=== PATIENT | female | born 1995 | race Caucasian/White ===

== ENCOUNTER 2017-03-01 02:18 | Inpatient (IN) | payer SELFPAY ==
[2017-03-01 02:51] LABS: Hematocrit 42 % (35-47); Hemoglobin 14.2 g/dl (12.0-16.0); Mean Corpuscular HGB Conc 34 g/dl (31-36); Mean Corpuscular Hemoglobin 30 pg (27-31); Mean Corpuscular Volume 87 fL (80-97); Mean Platelet Volume 8 um3 (7.4-10.4); Red Blood Count 4.81 10^6/ul (4.0-5.4); Red Cell Distribution Width 14 % (10.5-15); White Blood Count 9.2 10^3/ul (3.5-10.8)
[2017-03-01 03:09] LABS: ALT 9 U/L (7-52); AST 13 U/L (13-39); Albumin 4.4 g/dL (3.2-5.2); Alkaline Phosphatase 40 U/L (34-104); Anion Gap 10 mmol/L (2-11); BUN/Creatinine Ratio 9.9 (8-20); Blood Urea Nitrogen 7 mg/dL (6-24); CO2 Carbon Dioxide 25 mmol/L (22-32); Chloride 105 mmol/L (101-111); EGFR African American 136.4 (>60); Globulin 2.8 g/dL (2-4); Glucose 103 mg/dL (70-100); Potassium 3.4 mmol/L (3.5-5.0); Sodium 140 mmol/L (133-145); Total Protein 7.2 g/dL (6.4-8.9)
[2017-03-01 03:23] LABS: Acetaminophen 16 mcg/mL; Alcohol 182 mg/dL (<10); Salicylate < 2.50 mg/dL (<30)
[2017-03-01 03:32] LABS: TSH (Thyroid Stimulating Horm) 3.02 mcIU/mL (0.34-5.60)
--- NOTE | 2017-03-01 06:58 | ED ---
Leslie Clifford Rebecca, scribed for Jamison Malcolm MD on 03/01/17 at 0524 . Substance Abuse/Use - HPI Summary HPI Summary: Pt is a 21 y/o F BIBA accompanied by [facility] police as a 2209 that was changed to a 941. Per nurse's notes, there was a note received by police that cause her to be switched to a 941. Pt confirms taking Percocet and EtOH tonight , stating "a little bit but not a lot" when asked how much of either she had. When asked if she does Percocet often she states "no I was just getting high." Denies SIs and edema. When asked why she presents, the pt reports that she was just "doing nothing, then police showed up." Denies any other drug use tonight. NKDA. Limited Hx obtainable from pt due to EtOH and Percocet use. - History Of Current Complaint Chief Complaint: EDMentalHealth Stated Complaint: SUBSTANCE ABUSE Time Seen by Provider: 03/01/17 03:38 Hx Obtained From: Patient, Medical Records Ingestion History: Type/Name Of Drug - EtOH, Percocet Overdose Characteristics: Oral Timing Of Abuse: Binge Use Aggravating Factor(s): Nothing Alleviating Factor(s): Nothing Associated Signs And Symptoms: Other: - Denies SIs - Allergies/Home Medications Allergies/Adverse Reactions: Allergies Allergy/AdvReac Type Severity Reaction Status Date / Time No Known Allergies Allergy Verified 03/01/17 06:34 PMH/Surg Hx/FS Hx/Imm Hx Previously Healthy: No - Unknown - limited Hx obtained from pr Infectious Disease History: No Infectious Disease History: Denies: Traveled Outside the [place] in Last 30 Days - Family History Known Family History: Positive: Unknown - Limited Hx due to pt's EtOH and Percocet - Social History Occupation: Student Alcohol Use: Weekly Review of Systems Negative: Edema Positive: Other - S/p EtOH and Percocet use, NEGATIVE: SIs All Other Systems Reviewed And Are Negative: Yes Physical Exam - Summary Physical Exam Summary: The patient is well-nourished in no acute distress and in no acute pain. The skin is warm and dry and skin color reflects adequate perfusion. HEENT: The head is normocephalic and atraumatic. The pupils are equal and reactive. The conjunctivae are clear and without drainage. Nares are patent and without drainage. Mouth reveals moist mucous membranes and the throat is without erythema and exudate. The external ears are intact. The ear canals are patent and without drainage. The tympanic membranes are intact. Neck is supple with full range of motion and non-tender. Respiratory: Chest is non-tender. Lungs are clear to auscultation and breath sounds are symmetrical and equal. Cardiovascular: Hear is regular rate and rhythm. There is no murmur or rub auscultated. There is no peripheral edema and pulses are symmetrical and equal. Abdomen: The abdomen is soft and non-tender. There are normal bowel sounds heard in all four quadrants and there is no organomegaly palpated. Musculoskeletal: No cuts to the upper extremities. Extremities are non-tender with full range of motion. There is good capillary refill. There is no peripheral edema or calf tenderness elicited. Good pulses distally. Neurological: Patient is alert. Psychiatric: The patient has an appropriate affect and does not exhibit any anxiety or depression. Triage Information Reviewed: Yes Vital Signs On Initial Exam: Initial Vitals Temp Pulse Resp BP Pulse Ox 97.8 F 67 18 118/70 100 03/01/17 02:29 03/01/17 02:29 03/01/17 02:29 03/01/17 02:29 03/01/17 02:29 Vital Signs Reviewed: Yes Diagnostics - Vital Signs Vital Signs Temp Pulse Resp BP Pulse Ox 03/01/17 02:29 97.8 F 67 18 118/70 100 - Laboratory Lab Results: Lab Results 03/01/17 03/01/17 Range/Units 02:41 02:41 WBC 9.2 (3.5-10.8) 10^3/ul RBC 4.81 (4.0-5.4) 10^6/ul Hgb 14.2 (12.0-16.0) g/dl Hct 42 (35-47) % MCV 87 (80-97) fL MCH 30 (27-31) pg MCHC 34 (31-36) g/dl RDW 14 (10.5-15) % Plt Count 270 (150-450) 10^3/ul MPV 8 (7.4-10.4) um3 Neut % (Auto) 64.3 (38-83) % Lymph % (Auto) 28.5 (25-47) % Barbour % (Auto) 5.8 (1-9) % Eos % (Auto) 0.8 (0-6) % Baso % (Auto) 0.6 (0-2) % Absolute Neuts (auto) 5.9 (1.5-7.7) 10^3/ul Absolute Lymphs (auto) 2.6 (1.0-4.8) 10^3/ul Absolute Monos (auto) 0.5 (0-0.8) 10^3/ul Absolute Eos (auto) 0.1 (0-0.6) 10^3/ul Absolute Basos (auto) 0.1 (0-0.2) 10^3/ul Absolute Nucleated RBC 0.01 10^3/ul Nucleated RBC % 0.1 Sodium 140 (133-145) mmol/L Potassium 3.4 L (3.5-5.0) mmol/L Chloride 105 (101-111) mmol/L Carbon Dioxide 25 (22-32) mmol/L Anion Gap 10 (2-11) mmol/L BUN 7 (6-24) mg/dL Creatinine 0.71 (0.51-0.95) mg/dL Est GFR ( Amer) 136.4 (>60) Est GFR (Non-Af Amer) 106.0 (>60) BUN/Creatinine Ratio 9.9 (8-20) Glucose 103 H (70-100) mg/dL Calcium 9.0 (8.6-10.3) mg/dL Total Bilirubin 0.70 (0.2-1.0) mg/dL AST 13 (13-39) U/L ALT 9 (7-52) U/L Alkaline Phosphatase 40 (34-104) U/L Total Protein 7.2 (6.4-8.9) g/dL Albumin 4.4 (3.2-5.2) g/dL Globulin 2.8 (2-4) g/dL Albumin/Globulin Ratio 1.6 (1-3) TSH 3.02 (0.34-5.60) mcIU/mL Beta HCG, Quant < 0.60 mIU/mL Salicylates < 2.50 (<30) mg/dL Acetaminophen 16 mcg/mL Serum Alcohol 182 H (<10) mg/dL Result Diagrams: 03/01/17 02:41 03/01/17 02:41 Lab Statement: Any lab studies that have been ordered have been reviewed, and results considered in the medical decision making process. Course/Dx - Course Assessment/Plan: Pt is a 21 y/o F BIBA accompanied by [facility] police as a 2209 that was changed to a 941. Per nurse's notes, there was a note received by police that cause her to be switched to a 941. Pt confirms taking Percocet and EtOH tonight, stating "a little bit but not a lot" when asked how much of either she had. When asked if she does Percocet often she states "no I was just getting high." Denies SIs and edema. When asked why she presents, the pt reports that she was just "doing nothing, then police showed up." Denies any other drug use tonight. NKDA. Limited Hx obtainable from pt due to EtOH and Percocet use. Serum alcohol of 182. Pt will be signed out, pending disposition awaiting MHE. - Diagnoses Provider Diagnoses: Acute alcohol intoxication, Suicidal ideations, Depression Discharge - Discharge Plan Condition: Stable Disposition: OTHER Discharge Disposition Comment: Pt will be signed out, pending disposition, awaiting MHE Referrals: [facility] [Primary Care Provider] - The documentation as recorded by the Leslie maher Rebecca accurately reflects the service I personally performed and the decisions made by me, Jamison Malcolm MD.
[2017-03-01 07:02] LABS: Urine Bacteria Absent (Absent); Urine Bilirubin Negative (Negative); Urine Glucose Negative (Negative); Urine Nitrite Negative (Negative)
[2017-03-01 07:22] LABS: Benzodiazepine Urine Screen None Detected (None Detect)
[2017-03-01] MEDS ORDERED: Nicotine GUM* 2 MG PO PRN (13:47)
[2017-03-01] MEDS ORDERED: Nicotine Inhaler* 10 MG AMP INH PRN (13:47)
[2017-03-01] MEDS ORDERED: Acetaminophen TAB* 325 MG PO PRN (13:47)
[2017-03-01] MEDS ORDERED: Al Hydrox/Mg Hydrox/Simet LIQ* 30 ML UDC PO PRN (13:47)
[2017-03-01] MEDS ORDERED: hydrOXYzine HCL TAB* 50 MG PO PRN (13:48)
[2017-03-01] MEDS: Nicotine Patch Removal NOTE PATCH OFF SCH (22:11)
[2017-03-02] MEDS: Nicotine PATCH 21 MG/24 HR* PATCH TRANSDERM SCH (11:10)
--- NOTE | 2017-03-02 13:08 | CONSULT ---
Consult Consult: Ms. Lemos presented intoxicated after having written a note to her Mom that implied that she may commit suicide. She was medically cleared on a previous shift and had a MHE. They felt that she need to be admitted for her safety and I agreed. She was admitted in stable condition with a diagnosis of depression with SI.
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
[2017-03-02] MEDS: Nicotine Patch Removal NOTE PATCH OFF SCH (20:35)
[2017-03-03] MEDS: Nicotine PATCH 21 MG/24 HR* PATCH TRANSDERM SCH (13:21)
[2017-03-03] MEDS: Nicotine Patch Removal NOTE PATCH OFF SCH (19:40)
[2017-03-04] MEDS: Nicotine PATCH 21 MG/24 HR* PATCH TRANSDERM SCH (09:59)
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
[2017-03-04] MEDS: Nicotine Patch Removal NOTE PATCH OFF SCH (20:22)
[2017-03-05 08:03] VITALS: BP 122/74
[2017-03-05] MEDS: Nicotine PATCH 21 MG/24 HR* PATCH TRANSDERM SCH (10:35)
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
--- NOTE | 2017-03-06 11:03 | DS ---
CC: [facility]; [facility]; FLORI Brenner, [facility] DISCHARGE SUMMARY: DATE OF ADMISSION: 03/01/17 DATE OF DISCHARGE: 03/05/17 SUPERVISING PSYCHIATRIST: Jacky Vu MD. DISCHARGE DIAGNOSES: Guy I: Unspecified depressive disorder, alcohol use disorder, cannabis use disorder. Guy II: Deferred. Guy III: No active medical problem. Guy IV: Stressors related to interpersonal relationships, and academic pressors. Guy V: 68. CONDITION AT THE TIME OF DISCHARGE: Improved. The patient vehemently denies depressed mood and suicidal ideation. She reports she is eager to resume course work at [employer] [facility] [facility] [employer] and wants to pursue her studies in [employer]. She agreed to be picked up by her mom and stepfather to return to campus. We discussed the importance of keeping her family involved in regards to her academic, social and personal life. She is encouraged to speak honestly with her therapist to discuss personal stressors. I also discussed the risk of substance use and the effect on not only the adolescent brain, but also decision making and impulsivity. Instructions are given to the patient and a copy given to her mother. MENTAL STATUS EXAMINATION: Patient is thin-framed, healthy appearing and appears stated age. She is cooperative and pleasant, talkative. She has adequate ADLS and is well-groomed. She is A+Ox3, Eye contact is good. Speechs i soft and articulate. Mood is "excited" and affect is bright. Thought processes are logical and goal directed. Thought content is negative for thought disorders. Insight and judgement are good. Memory 3/3. Fund of knowledge is excellent. MEDICATIONS: None. The patient declines need for medications at this time. ACTIVITY: Ambulation as tolerated. Tobacco cessation assistance declined by patient. No pending labs or diagnostic studies at the time of discharge. DIET: Regular. FOLLOW-UP CARE: The patient is given appointments as agreed upon with her therapist, Ryan Whalen, at [facility]. She will also see therapist, Purvi Brown, for EMDR. She will meet with Nora Blackwell, the dude ranch manager at [facility] tomorrow morning at 10:30 a.m. Shortly thereafter, she will start orientation for a group through the [facility] program. HOSPITAL COURSE: A. Reason for admission: The patient was brought to the emergency department under 9.41 due to suicide gesture and disorganized intoxicated behavior. B. Psychiatric treatment rendered: The patient was admitted to Adult Behavioral Services unit under 9.39 status. Code status was full. She was placed on 15- minute checks for safety, encouraged to participate in therapeutic milieu, individual and psychoeducational groups. Collateral was obtained from [facility], her mother and stepfather and her therapist in regards to baseline. Throughout the hospitalization, Vanessa participated in programing, she was interactive with select staff and peers. There was some concern that she was minimizing her suicide attempt and stressors leading up to it. She denies need for antidepressant or antianxiety medications. She also minimized her alcohol, marijuana and prescription pain pill use. Patient education was done in regards to impact of substance use. This video game script writer collaborated with her mother and her stepfather obtaining collateral about the patient's current presentation and her mental health history. The patient had been admitted over the weekend and met with this video game script writer on Saturday morning. She expressed eagerness for discharge as soon as possible. She was encouraged to remain at least one more business day for full staff observation and to complete an MMPI for diagnostic clarification. See consultation report by Dr. Dylon Heath. The patient continued to deny suicidal ideation. She was safe on all checks. Observation was decreased to 30-minute checks and she was allowed staff pass, she was allowed computer privileges for academic and discharge purposes. She was pleasant and cooperative, increasingly receptive to staff suggestions. She agreed to follow up with recommendations for outpatient services at [facility] and through private therapist for EMDR. The patient's parents were notified of discharge plan and given copies of discharge paperwork. The patient was discharged by nursing staff to her mother and stepfather. Deputy Jailer was present to answer questions and concerns. Cynthia is an intelligent young woman who is a pleasure to meet. We certainly wish her well in her academic career at [employer] [facility] [facility] [employer]. She is encouraged to return to the emergency department should symptoms worsen. ANDRAE WREN, ANKITA [id number]/[facility] #: [id number] RADHA
== END 2017-03-05 12:20 | disposition home or self-care (01) | DRG 881 ==
LOC: ED 02:18 → BSU 13:47
PROVIDERS: ADMIT Psychiatry & Neurology Psychiatry; ATTEND Psychiatry & Neurology Psychiatry
DX: F32.9 Major depressive disorder, single episode, unspecified (principal); R45.851 Suicidal ideations; F10.10 Alcohol abuse, uncomplicated; F12.90 Cannabis use, unspecified, uncomplicated
CPT/HCPCS: 36415; 80053; 80307; 80320; 80329; 81003; 81015; 84443; 84702; 85025; 87086; A9270-GY; G0480

== ENCOUNTER 2017-04-05 19:05 | Inpatient (IN) | payer SELFPAY ==
[2017-04-05] MEDS ORDERED: LORazepam INJ* 2 MG/ML 1 ML VIAL IM ONE ×2 (20:09→21:27)
[2017-04-05] MEDS ORDERED: LORazepam INJ* 2 MG/ML 1 ML VIAL IV ONE (20:09)
[2017-04-05 20:48] LABS: Hematocrit 41 % (35-47); Hemoglobin 13.9 g/dl (12.0-16.0); Mean Corpuscular HGB Conc 34 g/dl (31-36); Mean Corpuscular Hemoglobin 30 pg (27-31); Mean Corpuscular Volume 88 fL (80-97); Mean Platelet Volume 8 um3 (7.4-10.4); Red Blood Count 4.69 10^6/ul (4.0-5.4); Red Cell Distribution Width 14 % (10.5-15); White Blood Count 16.6 10^3/ul (3.5-10.8)
[2017-04-05 21:04] LABS: ALT 11 U/L (7-52); AST 15 U/L (13-39); Albumin 4.4 g/dL (3.2-5.2); Alkaline Phosphatase 50 U/L (34-104); Anion Gap 10 mmol/L (2-11); BUN/Creatinine Ratio 17.4 (8-20); Blood Urea Nitrogen 12 mg/dL (6-24); CO2 Carbon Dioxide 24 mmol/L (22-32); Calcium 9.2 mg/dL (8.6-10.3); Chloride 105 mmol/L (101-111); EGFR Non-African American 109.6 (>60); Glucose 79 mg/dL (70-100); Potassium 3.4 mmol/L (3.5-5.0); Sodium 139 mmol/L (133-145); Total Protein 7.4 g/dL (6.4-8.9)
[2017-04-05 21:21] LABS: Acetaminophen < 15 mcg/mL; Alcohol 243 mg/dL (<10); Salicylate < 2.50 mg/dL (<30)
[2017-04-05 21:39] LABS: Urine Bacteria Absent (Absent); Urine Bilirubin Negative (Negative); Urine Glucose Negative (Negative); Urine Nitrite Negative (Negative)
[2017-04-05 22:01] LABS: Benzodiazepine Urine Screen None Detected (None Detect)
--- NOTE | 2017-04-05 22:36 | ED ---
Emerald Clifford Alfonso, scribed for Maicol Jack MD on 04/05/17 at 1927 . Psychiatric Complaint - HPI Summary HPI Summary: This patient is a 21 year old F [facility] with a chief complaint of SI since early today. She was referred to [facility] by her counselor. She got news today regarding a contact restriction against her. The patient rates the pain 0/10 in severity. Symptoms alleviated by nothing. Patient reports vomiting, and ETOH use. - History Of Current Complaint Hx Obtained From: Patient, Other: - Counselor Onset/Duration: Gradual Onset, Lasting Hours, Still Present Timing: Constant Severity Currently: Moderate Character: Stuporous Alleviating Factor(s): Nothing Has Suicidal: Reports: Thoughts - Allergies/Home Medications Allergies/Adverse Reactions: Allergies Allergy/AdvReac Type Severity Reaction Status Date / Time No Known Allergies Allergy Verified 03/01/17 16:50 PMH/Surg Hx/FS Hx/Imm Hx Sensory History: Reports: Hx Contacts or Glasses Denies: Hx Hearing Aid Opthamlomology History: Reports: Hx Contacts or Glasses Psychiatric History: Denies: Hx Eating Disorder, Hx of Violent Episodes Against Others - Family History Known Family History: Negative: Diabetes - Social History Alcohol Use: Weekly Substance Use Type: Reports: Marijuana Substance Use Comment - Amount & Last Used: Unknown Smoking Status (MU): Light Every Day Tobacco Smoker Type: Cigarettes Amount Used/How Often: 2-3 cigarettes per day. Pt has smoked cigarettes in the last 30 days Review of Systems Positive: Vomiting Psychological: Other - SI, ETOH use All Other Systems Reviewed And Are Negative: Yes Physical Exam Triage Information Reviewed: Yes Vital Signs On Initial Exam: Initial Vitals Temp Pulse Resp BP Pulse Ox 98.0 F 88 18 98/56 100 04/05/17 19:45 04/05/17 19:45 04/05/17 19:45 04/05/17 19:45 04/05/17 19:45 Vital Signs Reviewed: Yes Appearance: Positive: Well-Appearing, No Pain Distress Skin: Positive: Warm, Skin Color Reflects Adequate Perfusion, Dry Head/Face: Positive: Normal Head/Face Inspection Eyes: Positive: Other: - Pupils 4-5 mm ENT: Positive: Normal ENT inspection Neck: Positive: Supple, Nontender Respiratory/Lung Sounds: Positive: Clear to Auscultation, Breath Sounds Present Cardiovascular: Positive: RRR Abdomen Description: Positive: Nontender, Soft Bowel Sounds: Positive: Present Musculoskeletal: Positive: Normal Neurological: Positive: Normal, Sensory/Motor Intact, Alert, Oriented to Person Place, Time, CN Intact II-III Psychiatric: Positive: Other - Labile affect Diagnostics - Vital Signs Vital Signs Temp Pulse Resp BP Pulse Ox 04/05/17 21:34 20 04/05/17 20:56 20 04/05/17 19:45 98.0 F 88 18 98/56 100 - Laboratory Lab Results: Lab Results 04/05/17 04/05/17 04/05/17 Range/Units 20:34 20:34 21:20 WBC 16.6 H (3.5-10.8) 10^3/ul RBC 4.69 (4.0-5.4) 10^6/ul Hgb 13.9 (12.0-16.0) g/dl Hct 41 (35-47) % MCV 88 (80-97) fL MCH 30 (27-31) pg MCHC 34 (31-36) g/dl RDW 14 (10.5-15) % Plt Count 340 (150-450) 10^3/ul MPV 8 (7.4-10.4) um3 Neut % (Auto) 81.8 (38-83) % Lymph % (Auto) 14.0 L (25-47) % Dillingham % (Auto) 3.4 (1-9) % Eos % (Auto) 0.2 (0-6) % Baso % (Auto) 0.6 (0-2) % Absolute Neuts (auto) 13.6 H (1.5-7.7) 10^3/ul Absolute Lymphs (auto) 2.3 (1.0-4.8) 10^3/ul Absolute Monos (auto) 0.6 (0-0.8) 10^3/ul Absolute Eos (auto) 0 (0-0.6) 10^3/ul Absolute Basos (auto) 0.1 (0-0.2) 10^3/ul Absolute Nucleated RBC 0 10^3/ul Nucleated RBC % 0 Sodium 139 (133-145) mmol/L Potassium 3.4 L (3.5-5.0) mmol/L Chloride 105 (101-111) mmol/L Carbon Dioxide 24 (22-32) mmol/L Anion Gap 10 (2-11) mmol/L BUN 12 (6-24) mg/dL Creatinine 0.69 (0.51-0.95) mg/dL Est GFR ( Amer) 141.0 (>60) Est GFR (Non-Af Amer) 109.6 (>60) BUN/Creatinine Ratio 17.4 (8-20) Glucose 79 (70-100) mg/dL Calcium 9.2 (8.6-10.3) mg/dL Total Bilirubin 0.40 (0.2-1.0) mg/dL AST 15 (13-39) U/L ALT 11 (7-52) U/L Alkaline Phosphatase 50 (34-104) U/L Total Protein 7.4 (6.4-8.9) g/dL Albumin 4.4 (3.2-5.2) g/dL Globulin 3.0 (2-4) g/dL Albumin/Globulin Ratio 1.5 (1-3) Beta HCG, Quant < 0.60 mIU/mL Urine Color Urine Appearance Urine pH (5-9) Ur Specific Kent (1.010-1.030) Urine Protein (Negative) Urine Ketones (Negative) Urine Blood (Negative) Urine Nitrate (Negative) Urine Bilirubin (Negative) Urine Urobilinogen (Negative) Ur Leukocyte Esterase (Negative) Urine WBC (Auto) (Absent) Urine RBC (Auto) (Absent) Ur Squamous Epith Cells (Absent) Urine Bacteria (Absent) Urine Glucose (Negative) Salicylates < 2.50 (<30) mg/dL Urine Opiates Screen None detected (None Detect) Acetaminophen < 15 mcg/mL Ur Barbiturates Screen None detected (None Detect) Ur Phencyclidine Scrn None detected (None Detect) Ur Amphetamines Screen None detected (None Detect) U Benzodiazepines Scrn None detected (None Detect) Urine Cocaine Screen None detected (None Detect) U Cannabinoids Screen Presumptive positive H (None Detect) Serum Alcohol 243 H (<10) mg/dL 04/05/17 Range/Units 21:20 WBC (3.5-10.8) 10^3/ul RBC (4.0-5.4) 10^6/ul Hgb (12.0-16.0) g/dl Hct (35-47) % MCV (80-97) fL MCH (27-31) pg MCHC (31-36) g/dl RDW (10.5-15) % Plt Count (150-450) 10^3/ul MPV (7.4-10.4) um3 Neut % (Auto) (38-83) % Lymph % (Auto) (25-47) % Dillingham % (Auto) (1-9) % Eos % (Auto) (0-6) % Baso % (Auto) (0-2) % Absolute Neuts (auto) (1.5-7.7) 10^3/ul Absolute Lymphs (auto) (1.0-4.8) 10^3/ul Absolute Monos (auto) (0-0.8) 10^3/ul Absolute Eos (auto) (0-0.6) 10^3/ul Absolute Basos (auto) (0-0.2) 10^3/ul Absolute Nucleated RBC 10^3/ul Nucleated RBC % Sodium (133-145) mmol/L Potassium (3.5-5.0) mmol/L Chloride (101-111) mmol/L Carbon Dioxide (22-32) mmol/L Anion Gap (2-11) mmol/L BUN (6-24) mg/dL Creatinine (0.51-0.95) mg/dL Est GFR ( Amer) (>60) Est GFR (Non-Af Amer) (>60) BUN/Creatinine Ratio (8-20) Glucose (70-100) mg/dL Calcium (8.6-10.3) mg/dL Total Bilirubin (0.2-1.0) mg/dL AST (13-39) U/L ALT (7-52) U/L Alkaline Phosphatase (34-104) U/L Total Protein (6.4-8.9) g/dL Albumin (3.2-5.2) g/dL Globulin (2-4) g/dL Albumin/Globulin Ratio (1-3) Beta HCG, Quant mIU/mL Urine Color Yellow Urine Appearance Cloudy Urine pH 6.0 (5-9) Ur Specific Kent 1.009 L (1.010-1.030) Urine Protein Negative (Negative) Urine Ketones Trace H (Negative) Urine Blood 1+ H (Negative) Urine Nitrate Negative (Negative) Urine Bilirubin Negative (Negative) Urine Urobilinogen Negative (Negative) Ur Leukocyte Esterase 2+ H (Negative) Urine WBC (Auto) 2+(11-20/hpf) H (Absent) Urine RBC (Auto) Trace(0-2/hpf) (Absent) Ur Squamous Epith Cells Present H (Absent) Urine Bacteria Absent (Absent) Urine Glucose Negative (Negative) Salicylates (<30) mg/dL Urine Opiates Screen (None Detect) Acetaminophen mcg/mL Ur Barbiturates Screen (None Detect) Ur Phencyclidine Scrn (None Detect) Ur Amphetamines Screen (None Detect) U Benzodiazepines Scrn (None Detect) Urine Cocaine Screen (None Detect) U Cannabinoids Screen (None Detect) Serum Alcohol (<10) mg/dL Result Diagrams: 04/05/17 20:34 04/05/17 20:34 Lab Statement: Any lab studies that have been ordered have been reviewed, and results considered in the medical decision making process. - EKG 2019 Cardiac Rate: NL - BPM 83 EKG Rhythm: Sinus Rhythm EKG Interpretation: NAC Course/Dx - Course Course Of Treatment: Ms. Lemos was brought in tonight intoxicated but was made a 941 for expressing suicidal ideation. Her serum ETOH was 240 at 2030 and she is sobering up for a MHE. She was agitated and a bit combative and was given IM Ativan for her safety and the staffs. - Differential Dx/Clinical Impression Provider Diagnosis: Alcohol intoxication Discharge - Discharge Plan Condition: Stable Disposition: OTHER Discharge Disposition Comment: Change of Shift The documentation as recorded by the Emerald maher Alfonso accurately reflects the service I personally performed and the decisions made by me, Maicol Jack MD.
[2017-04-06] MEDS ORDERED: Haloperidol INJ IV/IM* 5 MG/ML AMP IM ONE (04:37)
[2017-04-06] MEDS ORDERED: diPHENhydraMINE IV* 50 MG/ML 1 ml VIAL (BENADRYL) ONE (04:38)
[2017-04-06] MEDS ORDERED: diPHENhydraMINE IV* 50 MG/ML 1 ml VIAL (BENADRYL) IM ONE (04:38)
[2017-04-06] MEDS ORDERED: Haloperidol INJ IV/IM* 5 MG/ML AMP ONE (04:38)
[2017-04-06] MEDS ORDERED: LORazepam INJ* 2 MG/ML 1 ML VIAL ONE (04:38)
[2017-04-06] MEDS ORDERED: LORazepam INJ* 2 MG/ML 1 ML VIAL IM ONE (04:39)
[2017-04-06] MEDS ORDERED: Acetaminophen TAB* 325 MG PO PRN (05:08)
[2017-04-06] MEDS ORDERED: Mouth Piece, Nicotine* 1 EACH CARTRIDGE INH SCH (05:08)
[2017-04-06] MEDS ORDERED: Al Hydrox/Mg Hydrox/Simet LIQ* 30 ML UDC PO PRN (05:08)
[2017-04-06] MEDS ORDERED: Nicotine Inhaler* 10 MG AMP INH PRN (05:08)
[2017-04-06] MEDS ORDERED: LORazepam PO 0-6 for WAM protocol PO SCH (06:00)
[2017-04-06] MEDS ORDERED: LORazepam IM 0-6 mg for WAM protocol IM SCH (06:00)
--- NOTE | 2017-04-06 06:11 | ED ---
Leslie Clifford Rebecca, scribed for Denia Gutierrez MD on 04/06/17 at 0347 . Progress - Progress Note Progress Note: Pt was signed out by Dr. Jack, pending disposition, awaiting MHE. Re-Evaluation - Re-Evaluation First Eval Re-Evaluation Time: 03:00 Comment: Discussed with the pts mother that the psychiatric unit will be coming soon. Pt is awake, she is speaking, and in no distresss. Mother is at bedside, and psychiatrics will be in soon to evaluate the pt. Course/Dx - Course Course Of Treatment: Pt was signed out by OTILIO Perry, pending disposition , awaiting MHE completion. Upon completion of the MHE and consultation with Dr. Cummings it has been determined that the pt will be admitted with Dx of depression and SIs. Pt's condition is stable and her disposition is admission to mental health. - Diagnoses Provider Diagnoses: Alcohol intoxication, Depression, Suicide ideation The documentation as recorded by the Leslie maher Rebecca accurately reflects the service I personally performed and the decisions made by , Denia Gutierrez MD.
[2017-04-06] MEDS: Vitamin THERAPEUTIC TAB PO SCH (10:23)
[2017-04-06] MEDS: Folic Acid TAB* 1 MG DAILY PO SCH (10:23)
--- NOTE | 2017-04-06 16:19 | HP ---
HISTORY AND PHYSICAL: DATE OF ADMISSION: 04/06/17 IDENTIFYING DATA: Cynthia is a 21-year-old [employer] with no history of treatment fo r mental illness but hospitalized once on 03/01/17 to this unit almost under similar circumstances. CHIEF COMPLAINT: "I'm not sure why I'm here." HISTORY OF PRESENT ILLNESS: Second lifetime psychotic hospitalization within a month of discharge f rom a first psychotic hospitalization on this unit for this 21- year-old [employer] student who was brought into the emergency department in an agitated, intoxicated state. She was picked up by [place] at her residence because of unruly and disorganized behavior. Prior to that, she viola isabella for contacting a male friend of hers who had order a protection against her and she was not supp osed to contact that individual. Although she was unable to provide any meaningful history in the e mergency department last night, she is coherent enough to give a reliable history. Cynthia report s that she just was trying to apologize to that male friend who had order of protection against her. However, reportedly she had been stalking that male student resulting in this order of protection. At the time when police arrived, she was intoxicated and vomited all over the place. She also rep orted to the police at least twice that she was suicidal and the police brought her to the emergency department for help. In the emergency department, she had some out of control aggressive behavior requiring chemical restraints plus mechanical restraints. Cynthia reports that since her discharg ghazala from this unit, she was doing very well, going to her classes, finishing her homework, and enjoyin g with her friends in school. She also was attending therapeutic groups as recommended. However, chai vivar continues to drink at least once or twice every week, mostly during the weekends and smokes pot on ce or twice every week. Apparently, she is minimizing her drug and alcohol use and gets upset durin g the conversation saying that she is not an alcoholic or a pothead. She will never quit smoking po t or stop drinking because that is not her main problem. PAST PSYCHIATRIC HISTORY: Other than another hospitalization on 03/01/17 she is not involved in any mental health treatments. She discharged herself forcefully last time prematurely against recommen dations by her treatment team on the unit and she declined any pharmacological treatments for mental health. She also declined treatments for her drug and alcohol use problems. PAST MEDICAL HISTORY: Unremarkable, as she does not have any acute or chronic physical health probl ems. ALLERGIES: No known drug allergies. FAMILY HISTORY: Born in [place]. She moved to [place] due to school. She has 2 brothers and she d enies any family history of mental illness. 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 Reportedly, she is a good student with 4 point average grades. She is also a very so cial and active person. It looks like she is in some sort of legal problem this time due to violati on of order of protection. Although she is not in any romantic relationships, she reports engaging i n sexual activities with many male friends. PHYSICAL EXAMINATION Physical exam was offered, Cynthia refused. She is somewhat somnolent but does not appear to be i n any acute physical distress. Her vitals show a blood pressure of 120/70, pulse of 65, respiration s 18, temperature 98.4, pulse ox 100% on room air today. Review of physical done in the emergency d epartment was unremarkable. LABORATORY DATA: Labs included CBC with differential, comprehensive metabolic profile, urinalysis, and tox screen. CBC shows a WBC count of 16.6 with hemoglobin 13.9, hematocrit 41, and platelet co unt 340. There is slight elevation of lymphocyte percentage to 14 and absolute neutrophil count to 13.6. CMP shows a sodium of 139, potassium 3.4, chloride 105, carbon dioxide 24, BUN 12, creatinine 0.69, GFR 109. Beta-hCG quantitative shows a level of less than 0.60. Tox screen shows a serum al cohol level of 243 at the time of admission and positive on cannabinoid screen. Urinalysis shows a low specific gravity of 1.009, slightly lower than normal, trace ketone, 1+ blood, 2+ leukocyte concepcion rase, urine wbc 2+, and positive for squamous epithelial cells. MENTAL STATUS EXAMINATION: Healthy appearing, average height, average weight, female, who is somewhat somnolent but easily arousable, alert, oriented to time, place, and person. She is wea ring paper hospital scrubs. Her personal hygiene and grooming appears to be normal. She made poor eye contact. Tearful the entire period, but describes her mood as "fine." Thought process is logic al and goal directed. Thought content was devoid of any delusions, obsessions, or active suicidal o r homicidal ideations. Intelligence appeared to be average as evidenced by her vocabulary, educatio n as well as fund of knowledge. Memory functions are intact. Insight and judgment poor. SUMMARY: This 21-year-old female with known history of drug and alcohol use, poor and con flicting interpersonal relationships, impulsive, and unthoughtful behaviors resulting in repeated ho spitalizations. She appears to be minimizing her drug and alcohol use. Also declining any help for both mental health and substance abuse. DIAGNOSTIC IMPRESSION: Unspecified mood disorder, rule out substance-induced mood disorder, alcohol use disorder, and cannabis use disorder. PHYSICAL AVTAR DIAGNOSIS: No physical health diagnosis. TREATMENT RECOMMENDATIONS: She will remain hospitalized on an involuntary status for her safety and reviewed by the full treatment team on Saturday. Her code status will remain full. Supportive milie u, individual, and group therapy will be initiated, and the patient will be encouraged to attend. A n offer to consider antidepressant was declined by Cynthia. She is in denial of her substance use problems and requesting to be discharged as soon as possible. Her mother who flew from [place] due to this news is with her and would like to talk to the treatment team on Saturday. [id number]/[facility] #: [id number]
[2017-04-07] MEDS: Thiamine TAB* 100 MG TAB DAILY (@ T+1) PO SCH (10:11)
[2017-04-07] MEDS: Vitamin THERAPEUTIC TAB PO SCH (10:11)
[2017-04-07] MEDS: Folic Acid TAB* 1 MG DAILY PO SCH (10:11)
[2017-04-08] MEDS: Vitamin THERAPEUTIC TAB PO SCH (09:27)
[2017-04-08] MEDS: Folic Acid TAB* 1 MG DAILY PO SCH (09:27)
[2017-04-08] MEDS: Thiamine TAB* 100 MG TAB DAILY (@ T+1) PO SCH (09:27)
--- NOTE | 2017-04-08 15:51 | PN ---
Subjective - Subjective Service Type: 96283 Hosp care 35 min high complexity Subjective: Patient was visiting with her mother, Patricia during visiting hours and this tech writer joined. Soledad is denying need for pharmalogical treatment or hospitalization. She states she has been coping very well with stressors and utilizing supports. She minimizes her alcohol and marijuana use. She reports new "celibacy" to be less impulsive. She minimizes harassing behavior of peer and states she was not concerned until "it became a judicial issue." Soledad refutes her mother's suggestions that she is engaging in risky behavior to quell anxiety or cover trauma-related responses. Soledad refers to all of collateral information as "isolated incidences." This morning, she emailed her [facility] facility manager and male peer (for whom she has an order of protection) against unit policy. This email denoted hypergraphia and included inappropriate level of information in regards to recent sexual behaviors. Her mother reports Soledad seemed to be improving after last admission and was "exceptional" at communicating. However, in the past week Soledad has not been honest about substance use and interactions that were perceived as harassing. Objective - Appearance Appearance: Well Developed/Nourished Dysmorphic Features: Yes Hygiene: Dirty Grooming: Disheveled - Behavior Psychomotor Activities: Normal Exhibits Abnormal Movement: No - Attitude and Relatedness Attitude and Relatedness: Superficially Cooperative Eye Contact: Fair - Speech Quality: Pressured Latencies: Normal Quantity: Copious - Mood Patient's Decription of Mood: "Fine" - Affect Observed Affect: Expansive Affect Consistent with: Euphoria - Thought Process Patient's Thought Process: Circumstantial, Over Inclusive Thought Content: No Passive Wish, No Suicidal Planning, No Homicidal Ideation, No Paranoid Ideation - Sensorium Experiencing Hallucinations: No, Sensorium is Clear Type of Hallucinations: Visual: No, Auditory: No, Command: No - Level of Consciousness Level of Consciousness: Alert Orientation: Yes Intact, Yes Orientated to Time, Yes Orientated to Place, Yes Orientated to Person - Impulse Control Impulse Control: Poor - Insight and Judgement Insight and Judgement: Poor - Group Participation Particating in Group Activities: Yes - Medication Management Medication Management Adherence: No Assessment - Assessment Merits Inpatient Hospitalization: For Immediate Safety, For Stabilization, To Initiate Treatment, For Ongoing Evaluation Inpatient DSM-IV Dx: unspecified mood d/o; r/o bipolar d/o; r/o PTSD; alcohol use d/o; cannabis use d/o; Plan - Plan Treatment Plan: Name: BORIS EDMOND Birthdate: 1995 [id number] Continue intensive acute psychiatric treatment. Start trial of depakote for mood stabilization and hydroxyzine for anxiety. Continue q15min observation and patient is not allowed access to computer at this time. Discharge planning to include family and [facility]. Continued Medication Management: Different Medication Medications: Current Medications Acetaminophen (Tylenol Tab*) 650 mg PO Q4H PRN PRN Reason: PAIN or TEMP > 101 F Al Hydrox/Mg Hydrox/Simethicone (Maalox Plus*) 30 ml PO Q4H PRN PRN Reason: INDIGESTION Device (Nicotine Mouth Piece*) 1 each INH .[facility]TR[facility]GE [facility] Folic Acid (Folvite Tab*) 1 mg PO DAILY [facility] Last Admin: 04/08/17 09:27 Dose: Not Given Lorazepam (Ativan Tab(*)) 0 - 6 mg PO .PER WAM PARAMETERS ADEBAYO PRN Reason: Protocol Lorazepam (Ativan Inj*) 0 - 6 mg IM .PER WAM PROTOCOL ADEBAYO PRN Reason: Protocol Multivitamins (Theragran Tab*) 1 tab PO DAILY [facility] Last Admin: 04/08/17 09:27 Dose: Not Given Nicotine (Nicotine Inhaler*) 10 mg INH Q2H PRN PRN Reason: CRAVING Thiamine HCl (Vitamin B-1 Tab*) 100 mg PO DAILY [facility] Last Admin: 04/08/17 09:27 Dose: Not Given - Discharge Plan Discharge Plan: Outpatient Follow Up
[2017-04-08] MEDS ORDERED: hydrOXYzine HCL TAB* 25 MG PO PRN (15:55)
[2017-04-08] MEDS: Divalproex DR TAB(*) 250 MG PO SCH (21:02)
[2017-04-09] MEDS: Folic Acid TAB* 1 MG DAILY PO SCH (09:16)
[2017-04-09] MEDS: Divalproex DR TAB(*) 250 MG PO SCH ×2 (09:16→20:31)
[2017-04-09] MEDS: Vitamin THERAPEUTIC TAB PO SCH (09:16)
[2017-04-09] MEDS: Thiamine TAB* 100 MG TAB DAILY (@ T+1) PO SCH (09:16)
--- NOTE | 2017-04-09 13:53 | PN ---
Subjective - Subjective Service Type: 27256 Hosp care 15 min low complexity Subjective: Patient denies sedation or side effects from depakote. She inquires about dosing and vitamins ordered, questions answered. Soledad denies need for vitamin replacement as she has not engaged in daily alcohol use. Although this is likely true, she minimizes the consequences of substance use. Her mother phoned junior copywriter and requested that team encourage substance use treatment for Soledad. Objective - Appearance Appearance: Well Developed/Nourished Dysmorphic Features: No Hygiene: Normal Grooming: Fairly Well Kept - Behavior Psychomotor Activities: Normal Exhibits Abnormal Movement: No - Attitude and Relatedness Attitude and Relatedness: Superficially Cooperative Eye Contact: Good - Speech Quality: Unpressured Latencies: Normal Quantity: Copious - Mood Patient's Decription of Mood: "Fine" - Affect Observed Affect: Good Affect Consistent with: Euthymia - Thought Process Patient's Thought Process: Coherent, Goal Directed Thought Content: No Passive Wish, No Suicidal Planning, No Homicidal Ideation, No Paranoid Ideation - Sensorium Experiencing Hallucinations: No, Sensorium is Clear Type of Hallucinations: Visual: No, Auditory: No, Command: No - Level of Consciousness Level of Consciousness: Alert Orientation: Yes Intact, Yes Orientated to Time, Yes Orientated to Place, Yes Orientated to Person - Insight and Judgement Insight and Judgement: Poor - Group Participation Particating in Group Activities: Yes - Medication Management Medication Management Adherence: Yes Assessment - Assessment Merits Inpatient Hospitalization: For Immediate Safety, For Stabilization, To Initiate Treatment, Pending Safe DC Plan Inpatient DSM-IV Dx: unspecified mood d/o; r/o bipolar d/o; r/o PTSD; alcohol use d/o; cannabis use d/o; Clinical Impression: 21yo female, [employer]. This is her second psychiatric hospitalization in the context of alcohol use, impulsive and reckless behaviors and conflicting relationships. She merits hospitalization for immediate safety and stabilization. Plan - Plan Treatment Plan: Name: BORIS EDMOND Birthdate: 1995 [id number] Continue intensive acute psychiatric treatment. Continue titration of depakote for mood stabilization and hydroxyzine for anxiety. Continue q15min observation and patient is not allowed access to computer at this time. Discharge planning to include family and [facility]. Continued Medication Management: Different Medication Medications: Current Medications Acetaminophen (Tylenol Tab*) 650 mg PO Q4H PRN PRN Reason: PAIN or TEMP > 101 F Al Hydrox/Mg Hydrox/Simethicone (Maalox Plus*) 30 ml PO Q4H PRN PRN Reason: INDIGESTION Device (Nicotine Mouth Piece*) 1 each INH .CARTRIDGE [facility] Divalproex Sodium (Depakote Dr Tab(*)) 250 mg PO BID [facility] Last Admin: 04/09/17 09:16 Dose: 250 mg Folic Acid (Folvite Tab*) 1 mg PO DAILY [facility] Last Admin: 04/09/17 09:16 Dose: 1 mg Hydroxyzine HCl (Atarax Tab*) 25 mg PO Q6H PRN PRN Reason: AGITATION/ANXIETY/INSOMNIA Multivitamins (Theragran Tab*) 1 tab PO DAILY [facility] Last Admin: 04/09/17 09:16 Dose: 1 tab Nicotine (Nicotine Inhaler*) 10 mg INH Q2H PRN PRN Reason: CRAVING Thiamine HCl (Vitamin B-1 Tab*) 100 mg PO DAILY [facility] Last Admin: 04/09/17 09:16 Dose: 100 mg - Discharge Plan Discharge Plan: Drug/Alcohol Rehab
[2017-04-10] MEDS: Folic Acid TAB* 1 MG DAILY PO SCH (08:37)
[2017-04-10] MEDS: Vitamin THERAPEUTIC TAB PO SCH (08:37)
[2017-04-10] MEDS: Divalproex DR TAB(*) 250 MG PO SCH ×2 (08:37→21:37)
[2017-04-10] MEDS: Thiamine TAB* 100 MG TAB DAILY (@ T+1) PO SCH (08:37)
--- NOTE | 2017-04-10 15:58 | PN ---
Subjective - Subjective Service Type: 29623 Hosp care 35 min high complexity Subjective: Patient is demonstrating little insight into need for treatment. She continues to minimize substance use and poor boundaries with peers. Patient present for family meeting with her mother, Patricia, manager process excellence Nora Garzaahon, Optical Laboratory Manager Payton Hudson and continuity writer. Prior to patient joining, team notified mother of recommendations for Soledad to take leave from school and participate in dual diagnosis inpatient treatment. She agreed to this recommendation. Patient was initially defensive and spoke of appealing ' s recommendation to take a leave from college. Providers notified her of likelihood of trauma-related behaviors in the past few months and encouraged her to participate in dual diagnosis of inpatient treatment. She was able to tolerate meeting well and cooperative with discussion. After the team left the room, she cursed at her mother and demanded that she leave. Patricia notified continuity writer and requested that Soledad be assessed. Soledad was noted to join milieu and groups afterwards. Objective - Appearance Appearance: Well Developed/Nourished Dysmorphic Features: Yes Hygiene: Normal Grooming: Fairly Well Kept - Behavior Psychomotor Activities: Normal Exhibits Abnormal Movement: No - Attitude and Relatedness Attitude and Relatedness: Superficially Cooperative Eye Contact: Good - Speech Quality: Unpressured Latencies: Normal Quantity: Copious - Mood Patient's Decription of Mood: "Okay" - Affect Observed Affect: Tense Affect Consistent with: Euthymia - Thought Process Patient's Thought Process: Coherent, Goal Directed Thought Content: No Passive Wish, No Suicidal Planning, No Homicidal Ideation, No Paranoid Ideation - Sensorium Experiencing Hallucinations: No, Sensorium is Clear Type of Hallucinations: Visual: No, Auditory: No, Command: No - Level of Consciousness Level of Consciousness: Alert Orientation: Yes Intact, Yes Orientated to Time, Yes Orientated to Place, Yes Orientated to Person - Impulse Control Impulse Control: Tenuous - Insight and Judgement Insight and Judgement: Poor - Group Participation Particating in Group Activities: Yes - Medication Management Medication Management Adherence: Yes Assessment - Assessment Merits Inpatient Hospitalization: For Immediate Safety, For Stabilization, For Discharge Planning Inpatient DSM-IV Dx: unspecified mood d/o; r/o bipolar d/o; r/o PTSD; alcohol use d/o; cannabis use d/o; Clinical Impression: 21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 This is her second psychiatric hospitalization in the context of alcohol use, impulsive and reckless behaviors and conflicting relationships. She merits hospitalization for immediate safety and stabilization. Plan - Plan Treatment Plan: Name: BORIS EDMOND Birthdate: 1995 [id number] Continue intensive acute psychiatric treatment. Continue titration of depakote for mood stabilization and hydroxyzine for anxiety. Continue q15min observation and patient is not allowed access to computer at this time. Discharge planning to include family and [facility]. Continued Medication Management: Different Medication Medications: Current Medications Acetaminophen (Tylenol Tab*) 650 mg PO Q4H PRN PRN Reason: PAIN or TEMP > 101 F Al Hydrox/Mg Hydrox/Simethicone (Maalox Plus*) 30 ml PO Q4H PRN PRN Reason: INDIGESTION Device (Nicotine Mouth Piece*) 1 each INH .CARTRIDGE [facility] Divalproex Sodium (Depakote Dr Tab(*)) 500 mg PO BID [facility] Last Admin: 04/10/17 08:37 Dose: 250 mg Hydroxyzine HCl (Atarax Tab*) 25 mg PO Q6H PRN PRN Reason: AGITATION/ANXIETY/INSOMNIA Multivitamins (Theragran Tab*) 1 tab PO DAILY [facility] Last Admin: 04/10/17 08:37 Dose: 1 tab Nicotine (Nicotine Inhaler*) 10 mg INH Q2H PRN PRN Reason: CRAVING DC folic acid and thiamine - Discharge Plan Discharge Plan: Drug/Alcohol Rehab
[2017-04-11] MEDS: Divalproex DR TAB(*) 250 MG PO SCH ×2 (08:53→20:34)
[2017-04-11] MEDS: Vitamin THERAPEUTIC TAB PO SCH (08:53)
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
--- NOTE | 2017-04-11 16:39 | PN ---
MHU: Group Therapy Note - Service Type Service Type: [id number] Group Psychotherapy - Medication Education Group: Patient was attentive and participatory in group, and remained in good behavioral control. Patient expressed positive insights regarding relevant treatment interventions. Patient stated understanding of material discussed and had appropriate questions.
[2017-04-12] MEDS: Vitamin THERAPEUTIC TAB PO SCH (08:27)
[2017-04-12] MEDS: Divalproex DR TAB(*) 250 MG PO SCH ×2 (08:27→20:58)
--- NOTE | 2017-04-12 12:00 | PN ---
MHU: Group Therapy Note - Service Type Service Type: [id number] Group Psychotherapy - Cognitive Behavioral Group Therapy ( CBT):Patient was attentive and participatory in CBT programming this morning, and remained in good behavioral control. Patient expressed positive insights regarding relevant treatment interventions and goals.
[2017-04-13] MEDS: Vitamin THERAPEUTIC TAB PO SCH (09:26)
[2017-04-13] MEDS: Divalproex DR TAB(*) 250 MG PO SCH (09:26)
[2017-04-14 07:42] VITALS: BP 126/64
[2017-04-14] MEDS: Vitamin THERAPEUTIC TAB PO SCH (08:45)
[2017-04-14] MEDS ORDERED: Divalproex DR TAB(*) 250 MG PO SCH (09:00)
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
== END 2017-04-14 07:30 | DRG 885 ==
LOC: ED 19:05 → BSU 04-06 06:44
PROVIDERS: ADMIT Psychiatry & Neurology Psychiatry; ATTEND Psychiatry & Neurology Psychiatry
PROC: HZ2ZZZZ Detoxification Services for Substance Abuse Treatment (ICD-10-PCS; principal; 2017-04-06)
DX: F39 Unspecified mood [affective] disorder (principal); F10.10 Alcohol abuse, uncomplicated; F12.10 Cannabis abuse, uncomplicated; Y90.8 Blood alcohol level of 240 mg/100 ml or more
CPT/HCPCS: 36415; 80053; 80164; 80307; 80320; 80329; 81003; 81015; 84702; 85025; 87086; 90853; 93005; 99222; 99231; 99232; 99233; 99238; A9270-GY; G0480; J1200; J1630; J2060

== ENCOUNTER 2019-03-26 00:10 | Emergency (ER) | payer OTHER ==
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
[2019-03-26 01:13] LABS: ABS Basophils 0.1 10^3/ul (0-0.2); ABS Eosinophils 0.3 10^3/ul (0-0.6); ABS Lymphocytes 2.9 10^3/ul (1.0-4.8); ABS Monocytes 0.6 10^3/ul (0-0.8); ABS Neutrophils 6.7 10^3/ul (1.5-7.7); Eosinophil % 3.2 %; Hematocrit 42 % (35-47); Hemoglobin 14.3 g/dL (12.0-16.0); Lymphocyte % 27.5 %; Mean Corpuscular HGB Conc 34 g/dL (31-36); Mean Corpuscular Hemoglobin 30 pg (27-31); Mean Corpuscular Volume 87 fL (80-97); Mean Platelet Volume 7.7 fL (7.4-10.4); Nucleated Red Blood Cells % 0.1; Platelet Count 314 10^3/uL (150-450); Red Blood Count 4.83 10^6 /uL (3.70-4.87); Red Cell Distribution Width 13 % (10-15); White Blood Count 10.6 10^3/uL (3.5-10.8)
[2019-03-26 01:25] LABS: Urine Appearance Clear; Urine Bacteria Absent (Absent); Urine Bilirubin Negative (Negative); Urine Blood 1+ (Negative); Urine Color Yellow; Urine Glucose Negative (Negative); Urine Ketones Negative (Negative); Urine Nitrite Negative (Negative); Urine Protein Negative (Negative); Urine Red Blood Cell Absent (Absent); Urine Squamous Epithelial Cell Present (Absent); Urine Urobilinogen Negative (Negative); Urine White Blood Cell 1+(6-10/hpf) (Absent)
[2019-03-26 01:37] LABS: AST 14 U/L (13-39); Albumin 4.5 g/dL (3.2-5.2); Albumin/Globulin Ratio 1.7 (1-3); Alcohol < 10 mg/dL (<10); Alkaline Phosphatase 64 U/L (34-104); Anion Gap 6 mmol/L (2-11); BUN/Creatinine Ratio 21.3 (8-20); Blood Urea Nitrogen 16 mg/dL (6-24); CO2 Carbon Dioxide 29 mmol/L (22-32); Calcium 9.7 mg/dL (8.6-10.3); Chloride 103 mmol/L (101-111); EGFR Non-African American 97.5 (>60); Globulin 2.6 g/dL (2-4); Glucose 108 mg/dL (70-100); Potassium 4.1 mmol/L (3.5-5.0); Sodium 138 mmol/L (135-145); Total Protein 7.1 g/dL (6.4-8.9)
[2019-03-26 01:39] LABS: Urine Benzodiazepine Screen None Detected (None Detect); Urine Opiates Screen None Detected (None Detect)
[2019-03-26 02:09] LABS: ALT 13 U/L (7-52)
--- NOTE | 2019-03-26 07:11 | ED ---
Progress - Progress Note Progress Note: Pt is a sign-out from Dr. Whalen at 07:00 on 03/26/19; shift change. Pt is pending on hold for psychiatrist evaluation. At 09:20, production editor reports pt's case was reviewed by Dr. Vu. Pt will be discharged home with a diagnosis of unspecified depression. Pt's mother will be picking up the pt in 20 minutes. Follow-up with [facility] PCP. - Consult/PCP Time Called: 01:40 Course/Dx - Course Course Of Treatment: Pt is a sign-out from Dr. Whalen at 07:00 on 03/26/19; shift change. Pt is pending on hold for psychiatrist evaluation. At 09:20, production editor reports pt's case was reviewed by Dr. Vu. Pt will be discharged home with a diagnosis of unspecified depression. Pt's mother will be picking up the pt in 20 minutes. Follow-up with [facility] PCP. - Diagnoses Provider Diagnoses: Mood disorder Discharge ED - Sign-Out/Discharge Documenting (check all that apply): Patient Departure - Discharge, Receiving Sign-Out Receiving patient FROM: Jere Whalen - 07:00 on 03/26/19 - Discharge Plan Condition: Stable Disposition: HOME Patient Education Materials: Depression (ED) [facility]errals: [facility] [Primary Care Provider] - Additional Instructions: Return to ED for any new or worsening symptoms. Follow up with PCP in 2-3 days. - Attestation Statements Document Initiated by Scribe: Yes Documenting Scribe: Siria Keller Provider For Whom Scribe is Documenting (Include Credential): Garrett Haywood MD Scribe Attestation: Siria Clifford, scribed for Garrett Haywood MD on 03/26/19 at 1608. Status of Scribe Document: Ready
[2019-03-26 12:15] VITALS: BP 97/54
== END 2019-03-26 09:30 | disposition home or self-care (01) ==
LOC: ED 00:10
DX: F39 Unspecified mood [affective] disorder (principal); F32.9 Major depressive disorder, single episode, unspecified; F17.210 Nicotine dependence, cigarettes, uncomplicated; Z79.899 Other long term (current) drug therapy
CPT/HCPCS: 36415; 80053; 80307; 80320; 81003; 81015; 85025; 87086; 99283; G0480